=== PATIENT | female | born 1950 | race Two or more races ===

== ENCOUNTER 2017-07-17 12:35 | Emergency (ER) | payer SELFPAY ==
[~2017-07-17] VITALS: Ht 152.4 cm; Wt 75.7 kg
[2017-07-17 12:43] VITALS: Ht 152.4 cm; Wt 75.7 kg
[2017-07-17 14:23] LABS: microscopic required? NO
[2017-07-17 14:39] LABS: BASOPHIL % 0.3 % (0-2); PLATELET COUNT 285 x10^3mcL (130-400)
[2017-07-17 14:43] LABS: CARBON DIOXIDE 28.9 mmol/L (21-32); CHLORIDE SERUM 97 mmol/L (98-107); CREATININE SERUM 0.9 mg/dL (0.6-1.0); GFR1 > 60 mL/min; GLUCOSE SERUM 98 mg/dL (74-106); POTASSIUM SERUM 3.1 mmol/L (3.5-5.1); SODIUM SERUM 137 mmol/L (136-145)
[2017-07-17 14:47] LABS: ALKALINE PHOSPHATASE 92 U/L (46-116); ALT/SGPT 13 U/L (14-59); AMYLASE 58 U/L (25-115); AST/SGOT 16 U/L (15-37); BILIRUBIN TOTAL 0.4 mg/dL (0.20-1.00); LIPASE 114 IU/L (73-393); TOTAL PROTEIN, SERUM 7.7 g/dL (6.4-8.2)
[2017-07-17 14:56] LABS: UA SPECIFIC GRAVITY <=1.005 (1.005-1.035); urine erythrocyte NEGATIVE (NEGATIVE)
[2017-07-17 17:01] VITALS: BP 114/77
== END 2017-07-17 17:01 | disposition home or self-care (01) ==
LOC: ED 12:35
PROVIDERS: Emergency Medicine
DX: K62.89 Other specified diseases of anus and rectum (principal); I10 Essential (primary) hypertension
CPT/HCPCS: 83880; J3010; J7030; Q9967

== ENCOUNTER 2019-12-06 17:46 | Emergency (ER) | payer BC, OTHER ==
[~2019-12-06] VITALS: Ht 152.4 cm; Wt 73.0 kg
[2019-12-06 17:59] VITALS: Ht 152.4 cm; Wt 73.0 kg
[2019-12-06 19:26] LABS: BASOPHIL % 0.4 % (0-2); PLATELET COUNT 256 x10^3mcL (130-400); RED CELL DISTRIBUTION WIDTH 13.5 % (11.5-14.5)
[2019-12-06 19:44] LABS: CALCIUM 8.7 mg/dL (8.5-10.1); CARBON DIOXIDE 26.2 mmol/L (21-32); CREATININE SERUM 1.2 mg/dL (0.6-1.0); POTASSIUM SERUM 3.3 mmol/L (3.5-5.1)
[2019-12-06 19:49] LABS: ALBUMIN 3.5 g/dL (3.4-5.0); BILIRUBIN TOTAL 0.4 mg/dL (0.20-1.00)
[2019-12-06 21:46] VITALS: BP 115/64
== END 2019-12-06 21:46 | disposition home or self-care (01) ==
LOC: ED 17:46
PROVIDERS: Student in an Organized Health Care Education/Training Program
DX: M25.512 Pain in left shoulder (principal); R07.89 Other chest pain; E87.1 Hypo-osmolality and hyponatremia; E87.6 Hypokalemia; I10 Essential (primary) hypertension
CPT/HCPCS: Q0092